=== PATIENT | male | born 1950 | race Caucasian/White ===

== ENCOUNTER → 2024-09-09 08:24 | Outpatient (REF) | payer MEDICARE, SELFPAY ==
[2024-09-09 10:10] LABS: ALT (SGPT) 26 U/L (0-50); AST (SGOT) 35 U/L (17-59); Albumin 4.5 g/dl (3.5-5.0); Blood Urea Nitrogen 22 mg/dl (9-20); Calcium 9.4 mg/dl (8.4-10.2); Carbon Dioxide 31 mmol/L (22-30); Chloride 104 mmol/L (98-107); Glucose 103 mg/dl (70-99); HDL Cholesterol 71 mg/dl; LDL Cholesterol, Calculated 56 mg/dl; Phosphorus 3.5 mg/dl (2.5-4.5); Potassium 4.1 mmol/L (3.5-5.1); Sodium 145 mmol/L (135-145); Total Cholesterol 140 mg/dl (50-199); Triglyceride 69 mg/dl (10-149); Very Low Density Lipoprotein 13 mg/dl (0-30); eGFR > 60.00
== END ==
LOC: HWLAB 08:24
PROVIDERS: ATTENDING PHYSICIAN Internal Medicine Cardiovascular Disease; FAMILY PHYSICIAN Internal Medicine
DX: I25.10 Atherosclerotic heart disease of native coronary artery without angina pectoris (principal); I10 Essential (primary) hypertension; E78.5 Hyperlipidemia, unspecified
CPT/HCPCS: 36415; 80061; 80069; 84450; 84460

== ENCOUNTER → 2025-09-17 08:03 | Outpatient (REF) | payer MEDICARE, SELFPAY ==
[2025-09-17 10:08] LABS: ALT (SGPT) 26 U/L (0-50); AST (SGOT) 32 U/L (17-59); Albumin 4.5 g/dl (3.5-5.0); Blood Urea Nitrogen 21 mg/dl (9-20); Calcium 9.4 mg/dl (8.4-10.2); Carbon Dioxide 31 mmol/L (22-30); Chloride 104 mmol/L (98-107); Glucose 99 mg/dl (70-99); HDL Cholesterol 81 mg/dl; LDL Cholesterol, Calculated 55 mg/dl; Potassium 3.9 mmol/L (3.5-5.1); Sodium 138 mmol/L (135-145); Very Low Density Lipoprotein 10 mg/dl (0-30); eGFR > 60.00
== END ==
LOC: HWLAB 08:03
PROVIDERS: ATTENDING PHYSICIAN Internal Medicine Cardiovascular Disease; FAMILY PHYSICIAN Internal Medicine
DX: I25.10 Atherosclerotic heart disease of native coronary artery without angina pectoris (principal); E78.5 Hyperlipidemia, unspecified; I10 Essential (primary) hypertension
CPT/HCPCS: 36415; 80061; 80069; 84450; 84460

== ENCOUNTER 2025-10-06 10:04 | Emergency (ER) | payer MEDICARE, SELFPAY ==
[2025-10-06 10:08] VITALS: BP 171/99
[2025-10-06 10:36] LABS: Hematocrit 47.9 % (39.0-52.0); Hemoglobin 16.8 g/dL (13.0-18.0); Mean Corp Hgb Conc. 35.1 g/dL (33.0-37.0); Mean Corpuscular Volume 92.3 fL (80.0-94.0); Nucleated Red Blood Cells % 0 % (-); Platelet Count 185 10^3/uL (130-400); Red Cell Dist. Width 12.3 % (11.5-14.5)
[2025-10-06 10:55] LABS: ALT (SGPT) 34 U/L (0-50); AST (SGOT) 42 U/L (17-59); Albumin 5.1 g/dl (3.5-5.0); Alkaline Phosphatase 65 U/L (38-126); Blood Urea Nitrogen 19 mg/dl (9-20); Calcium 9.9 mg/dl (8.4-10.2); Carbon Dioxide 31 mmol/L (22-30); Chloride 101 mmol/L (98-107); Estimated Creatinine Clearance 53 ml/min; Glucose 144 mg/dl (70-99); Potassium 3.7 mmol/L (3.5-5.1); Sodium 139 mmol/L (135-145); Total Protein 8.0 g/dl (6.3-8.2); eGFR > 60.00
--- NOTE | 2025-10-06 12:05 | ED.GENMED ---
History of Present Illness
General
Chief Complaint: Fainting/Passed Out
Source: patient, spouse and family
Exam Limitations: none
Time Seen by Provider: 10/06/25 10:19
Nursing documentation reviewed up to this point in time: agreed with
History of Present Illness
History of Present Illness:
75-year-old male past medical history of CAD hypertension hyperlipidemia presenting to the emergency department today with concerns of lightheadedness after going to the bathroom. Now is asymptomatic. Denies any chest pain or palpitations. Has
had a slight amount of diarrhea after the event.
Past History
Past History
ED Past Medical History: CAD, GERD, HTN, Hypercholesterolemia, [place] and Other (Cholecystitis)
ED Past Surgical History: Cardiac and Cholecystectomy
Social History
Tobacco: Non-smoker
Alcohol: None
Drug: None
Review of Systems
Review of Systems
Allergies reviewed?: Yes
All Other Systems: ROS reviewed and negative except as documented in HPI and ROS
Phy Exam
Physical Exam
Physical Exam:
GENERAL: Alert , in no apparent distress
EYE: pupils equal and reactive
NECK: Supple, no significant adenopathy.
ENT: o/p clr, mmm.
CARDIAC: Regular rate and rhythm .
LUNGS: Clear breath sounds bilaterally, no acute respiratory distress, no wheezes/rales/rhonchi
ABDOMEN: Soft, without focal tenderness, no r/g, no cvat
NEUROLOGICAL: Alert and oriented, no focal neuro deficits
SKIN: Warm and dry, skin intact.
MUSCULOSKELETAL: No edema, well perfused.
PSYCH: Normal and appropriate interaction.
Course
Orders/Labs/Results
Orders:
Orders
10/06/25 10:07
Electrocardiogram (*1) Urgent
Reason for Study: Abdominal Pain
EKG- Treatment ONCE
10/06/25 10:26
Complete Blood Count/With Diff Urgent
Comprehensive Metabolic Panel Urgent
10/06/25 10:35
Urinalysis Reflex To Culture Urgent
Abnormal Lab Results
10/06/25
10:26
MCH 32.4 H pg
(27.0-31.0)
Carbon Dioxide 31 H mmol/L
(22-30)
Glucose 144 H mg/dl
(70-99)
Total Bilirubin 4.4 H mg/dl
(0.2-1.3)
Albumin 5.1 H g/dl
(3.5-5.0)
10/06/25 10:26
10/06/25 10:26
Vital Signs
Initial and Last Documented VS:
Initial Vital Signs
Temp Pulse Resp BP Pulse Ox
97.2 F 62 20 171/99 97
10/06/25 10:08 10/06/25 10:08 10/06/25 10:08 10/06/25 10:08 10/06/25 10:08
Last Documented Vital Signs
Temp Pulse Resp BP Pulse Ox
97.2 F 62 20 171/99 97
10/06/25 10:08 10/06/25 10:08 10/06/25 10:08 10/06/25 10:08 10/06/25 10:08
MDM/Problems Addressed
MDM/Problems Addressed:
75-year-old male presenting to the emergency department today with concerns of lightheadedness upon standing after a bowel movement this morning. He did have stomach cramping at the time but denies any abdominal pain nausea vomiting chest pain
shortness of breath associated. Now is asymptomatic. Able to stand up and walk here. Vital signs normal labs unremarkable bilirubin elevated but does have a history of [place]ber[place]. EKG normal here. Patient no distress patient appears stable for
close outpatient follow-up. Return precautions given.
*Pulse Oximetry
SaO2: 97
Oxygen Mode of Delivery: Room air
Patient hypoxic: no (97)
*Critical Care Note
Total Time (30-74mins, 75-104mins- exclusive of procedures): Not Applicable
ED Attending Note
-
Portions of this chart may have been created with voice recognition software.� Occasional wrong word or��sound alike� substitutions may have occurred due to the inherent limitations of voice recognition software.
Discharge Plan
Departure
Patient Disposition: Home (Routine Discharge)
Date of Disposition: 10/06/25
Time of Disposition: 12:07
Patient with high blood pressure during this ER visit?: No
Condition: Good
Covid-19: Not Applicable
Discharge Problem:
Pre-syncope
Instructions: Syncope (Fainting) (DC)
Prescriptions:
No Action
aspirin 81 MG tablet,delayed release (DR/EC)
81 mg PO DAILY
ramipril 5 MG capsule
5 mg PO DAILY
atorvastatin 40 MG tablet
40 mg PO QPM Qty: 30 3RF
nitroglycerin 0.4 MG tablet, sublingual
0.4 mg sublingual PRN PRN (Reason: chest pain ) Qty: 25 0RF
Rx Instructions:
Take 1 tab under the tongue every 5 minutes x 3 doses as needed for chest pain
acetaminophen 325 MG tablet
650 mg PO PRN PRN (Reason: pain)
ibuprofen [Advil] 200 MG tablet
600 mg PO Q6HPRN PRN (Reason: mild to moderate pain) Qty: 0 0RF
Referrals:
Efren Henderson MD [Family Provider, Internal Medicine]
Activity Restrictions/Additional Instructions:
You came to the emergency department today with concerns of a presyncopal episode. Here your reassuring assessment. Please feel closely with your primary care doctor. Return for any worsening, new or concerning symptoms.
Interventions
Interventions:
*Risk Screen - Suicide Last Done: 10/06/25 10:08
*General Assessment Last Done: 10/06/25 10:08
*Neglect/Abuse Screening Last Done: 10/06/25 10:08
*ED COVID-19 Vaccine History Last Done: 10/06/25 10:16
*ED Influenza Vaccine History Last Done: 10/06/25 10:16
ED- Cardiac Assessment Last Done: 10/06/25 10:36
ED- Neurological Assessment Last Done: 10/06/25 10:36
Discharge Date and Time
Print Language: [id number]
== END 2025-10-06 12:25 | disposition home or self-care (01) ==
LOC: EMR 10:04
PROVIDERS: EMERGENCY PHYSICIAN Student in an Organized Health Care Education/Training Program; FAMILY PHYSICIAN Internal Medicine
DX: R55 Syncope and collapse (principal); I25.10 Atherosclerotic heart disease of native coronary artery without angina pectoris; I10 Essential (primary) hypertension; E78.00 Pure hypercholesterolemia, unspecified; I25.2 Old myocardial infarction; Z90.49 Acquired absence of other specified parts of digestive tract
CPT/HCPCS: 99284; 80053; 85025; 93005